=== PATIENT | male | born 1995 ===

== ENCOUNTER 2017-07-18 20:49 | Emergency (ER) | payer SELFPAY ==
--- NOTE | 2017-07-18 20:58 | UC ---
Skin Complaint HPI - HPI Summary HPI Summary: Pt presents with an injury to his left 5th digit sustained about 1.5 hours ago while playing squash. He tells me that the ball hit his finger and the middle of the nail on his left 5th digit was bent upwards at a 90deg angle, he promptly pushed it back into proper position. Experienced some mild bleeding and pain. He came straight to from this incident. - History of Current Complaint Time Seen by Provider: 07/18/17 20:57 Stated Complaint: FINGER INJURY Hx Obtained From: Patient Onset/Duration: Sudden Onset Skin Exposure Onset/Duration: Hours Ago Onset Severity: Moderate Current Severity: Moderate Pain Intensity: 5 Pain Scale Used: 0-10 Numeric Location: Discrete Character: Pain - Allergy/Home Medications Allergies/Adverse Reactions: Allergies Allergy/AdvReac Type Severity Reaction Status Date / Time No Known Allergies Allergy Verified 07/18/17 20:58 Home Medications: Home Medications NK [No Home Medications Reported] 07/18/17 [History Confirmed 07/18/17] Review of Systems Constitutional: Negative Skin: Other - Bent nail left 5th digit Neurovascular: Negative Musculoskeletal: Other: - Pain left 5th digit All Other Systems Reviewed And Are Negative: Yes PMH/Surg Hx/FS Hx/Imm Hx Previously Healthy: Yes Physical Exam Triage Information Reviewed: Yes Appearance: Well-Appearing, Well-Nourished Vital Signs Reviewed: Yes Cardiovascular: Positive: Other: - Good capillary refill distal left 5th digit Musculoskeletal: Positive: Strength Intact - Left digits 1-5 and left wrist., ROM Intact - Left digits 1-5 and left wrist., No Edema - Left digits 1-5. Neurological: Positive: Alert, Other: - Sensations of Left 5th digit intact. Skin: Positive: Other - Left 5th digit nail has a linear horizontal crack extending across the middle, well above the nailbed. There is some dried blood surrounding the nail. No edema or active bleeding. Course/Dx - Course Course Of Treatment: The nail was irrigated with approx 50mL sterile saline. The wound was explored and the nail appeared to be securely in place. I taped the nail down and applied a small REGINALDO wrap around the finger. Advised to keep the nail taped and finger wrapped for the next 2 days. If symptoms persist or he develops increasing pain - return to or follow up with ortho - Differential Diagnoses - Skin Complaint Differential Diagnoses: Other - Closed fracture - Diagnoses Provider Diagnoses: Nail avulsion left 5th digit Discharge - Discharge Plan Condition: Stable Disposition: HOME Patient Education Materials: Nail Avulsion (ED) [facility] - Quan Bustamante MD [Medical Doctor] - If Needed Additional Instructions: 1) Keep bandaged and wrapped for the next 2 days. Monitor the area for any increased redness or swelling 2) Ibuprofen OTC for pain If you develop new symptoms, increased pain, or decreasing range of motion - please call PCP or follow up with Orthopedics.
[2017-07-18 20:59] VITALS: BP 119/66
== END 2017-07-18 21:30 | disposition home or self-care (01) ==
LOC: UCEAST 20:49
DX: S61.307A Unspecified open wound of left little finger with damage to nail, initial encounter (principal); W21.09XA Struck by other hit or thrown ball, initial encounter; Y93.73 Activity, racquet and hand sports; Y92.9 Unspecified place or not applicable
CPT/HCPCS: 99201; G0463